=== PATIENT | female | born 1970 | race Hispanic/Latino ===

== ENCOUNTER 2017-02-14 18:09 | Emergency (ER) | payer OTHER ==
[~2017-02-14] VITALS: Ht 172.7 cm; Wt 99.8 kg
[~2017-02-14 18:09] MED LIST: ALPR1TAB6 PO; AMLO5TAB2 PO; CITA40TA5 PO; ESTR2TAB PO; LOSA1TAB19 PO; PANT40TA5 PO; POTA10TA31 PO; PROP20TA PO; RIZA10TA PO; TRAZ100T15 PO
[2017-02-14] MEDS ORDERED: DILAUDID IM STA (18:35)
[2017-02-14] MEDS ORDERED: ZOFRAN ODT SL STA (18:35)
--- NOTE | 2017-02-14 18:39 | ER.PDOC ---
General Chief Complaint: Female Urogenital Problems Stated Complaint: FEMALE Time seen by MD: 18:33 Source: patient History of Present Illness Timing/Duration: week Severity/Quality: moderate Radiation: buttocks, upper legs Method of Injury: unknown Modifying Factors: improves with immobilization, improves with movement Associated Symptoms: denies symptoms, muscle spasms, lower back pain, other ( DYS) Prior symptoms/Treatment: Similar symptoms previous Allergies: Coded Allergies: adhesive (Verified Allergy, Mild, 03/30/14) promethazine (Verified Allergy, Mild, 03/30/14) Home Meds Reported Medications Estradiol (ESTRADIOL) 2 Mg Tablet, 1 TAB PO DAILY, #90 TAB 1 Refill 05/22/15 Trazodone Hcl (TRAZODONE HCL) 100 Mg Tablet, 100 MG PO HS, TABLET 03/05/14 Propranolol Hcl (PROPRANOLOL HCL) 20 Mg Tablet, 20 MG PO BID, TABLET 03/05/14 Pantoprazole Sodium (PANTOPRAZOLE SODIUM) 40 Mg Tablet.dr, 40 MG PO DAILY 03/05/14 Potassium Chloride (POTASSIUM CHLORIDE) 10 Meq Tab.er.prt, 10 MEQ PO DAILY 03/05/14 Losartan/Hydrochlorothiazide (LOSARTAN-HCTZ 50-12.5 MG TAB) 1 Each Tablet, 1 EACH PO DAILY, TABLET 03/05/14 Alprazolam (ALPRAZOLAM) 1 Mg Tablet, 1 MG PO QID, TABLET 03/05/14 Past Medical History Medical History: hypertension Surgical History: cardiac cath, back, hysterectomy, neck LMP (females 10-50): hysterectomy Social History Alcohol Use: none Drug Use: none Review of Systems Genitourinary: dysuria, hematuria All Other Systems: Reviewed and Negative Physical Exam General Appearance: No Apparent Distress, WD/WN HEENT: PERRL/EOMI, Normal ENT Inspection, TMs Normal, Pharynx Normal Neck: Non-Tender, Normal Alignment Cardiovascular/Respiratory: Regular Rate, Rhythm, No M/R/G, Normal Peripheral Pulses, No JVD, Normal Breath Sounds, No Respiratory Distress Gastrointestinal: Normal Bowel Sounds, No Organomegaly, No Pulsatile Mass, Non Tender, Soft Back: Decreased Range Of Motion, Muscle Spasm Extremities: No Evidence of Injury, Normal Range of Motion, Non-Tender, No Pedal Edema, Pelvis Stable 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, 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, mood/effect nml, No Motor/Sensory Deficits, Relexes nml Skin: Normal Color, Warm/Dry Results/Orders Results/Orders Laboratory Tests Test 02/14/17 18:39 Urine Collection Type VOID Urine Color YELLOW (YELLOW) Urine Appearance CLOUDY (CLEAR) Urine Bilirubin NEGATIVE MG/DL (NEGATIVE) Urine Ketones NEGATIVE (NEGATIVE) Urine Specific [place] 1.015 (1.005-1.035) Urine pH 6 (5.0-6.0) Urine Protein 30 mg/dL (NEGATIVE) Urine Urobilinogen NORMAL (NEGATIVE) Urine Nitrate NEGATIVE (NEGATIVE) Urine Leukocyte Esterase 500/uL 2+ (NEGATIVE) Urine Blood 250 4+ (NEGATIVE) Urine RBC 2-5 RBC/HPF (NONE SEEN) Urine WBC TNTC WBC/HPF (0-2) Urine Squamous Epithelial Cells FEW #/HPF (FEW) Urine Bacteria MODERATE (NONE SEEN) Urine Glucose NORMAL (NEGATIVE) Departure Time of Disposition: 19:33 Disposition: 01 HOME, SELF-CARE Impression: Primary Impression: Low back pain Additional Impression: Cystitis Referrals: Sharif NEWMAN (PCP) PRIMARY CARE PROVIDER Problem Qualifiers CY CHAPA MD Feb 14, 2017 18:39
[2017-02-14 18:47] LABS: BILIRUBIN,URINE NEGATIVE (NEGATIVE); UROBILINOGEN,URINE NORMAL (NEGATIVE)
[2017-02-14 18:48] LABS: APPEARANCE,URINE CLOUDY (CLEAR); UA COLOR YELLOW (YELLOW)
[2017-02-14] MEDS ORDERED: ZOFRAN ODT ONE (18:48)
[2017-02-14] MEDS ORDERED: DILAUDID ONE (18:49)
[2017-02-14] MEDS ORDERED: TORADOL ONE (18:49)
[2017-02-14 18:50] LABS: WBC,URINE TNTC WBC/HPF (0-2)
[2017-02-14] MEDS ORDERED: TORADOL IM ONE (19:00)
--- NOTE | 2017-02-14 19:15 | NUR ---
DISCHARGE DISCHARGE INSTRUCTIONS AND PRESCRIPTION MEDICATION DISCUSSED. PT AND FAMILY MEMBER VERBALIZED UNDERSTANDING. ENCOURAGED TO RETURN FOR ANY CONCERNS.
--- NOTE | 2017-02-14 19:50 | NUR ---
UPDATE RT CALLED FOR REPEAT EKG
[2017-02-14 20:36] VITALS: BP 131/103
== END 2017-02-14 19:15 | disposition home or self-care (01) ==
LOC: ER 18:09
DX: N30.90 Cystitis, unspecified without hematuria (principal); I10 Essential (primary) hypertension; Z90.710 Acquired absence of both cervix and uterus; Z79.899 Other long term (current) drug therapy
CPT/HCPCS: 81000; 87077; 87086; 87186; 96372 ×2; 99284; J1170; J1885; Q0162

== ENCOUNTER → 2017-02-25 | Outpatient (CLI) | payer BC, OTHER ==
--- NOTE | 2017-02-26 | DIREP ---
PROCEDURE:CT ANGIOGRAPHY HEAD COMPARISON:None. INDICATIONS:HEADACHE TECHNIQUE:After obtaining the patient's consent, CT images of the head were obtained with non-ionic contrast, and with multi-planar/3-D imaging to optimize visualization of vascular anatomy. FINDINGS: VASCULATURE:Venous mixing moderately limits arterial detail. No rate limiting aneurysm, vessel occlusion or stenosis seen within limitations of technique. Dural venous sinuses are opacified without thrombus visualized. VENTRICLES:Normal. CEREBRUM:No hemorrhage, mass lesion or infarction. CEREBELLUM:No hemorrhage, mass lesion or infarction. BRAINSTEM:Normal. BASAL CISTERNS:Normal. SKULL:Normal. OTHER:Negative. CONCLUSION: 1. Limited CT angiogram. No rate limiting stenosis, vessel occlusion or aneurysm. 2. No acute intracranial abnormality demonstrated. Dictated by: Saw Alamo M.D. on 02/25/2017 at 11:53 PM
== END | disposition home or self-care (01) ==
LOC: CT 14:01 → EEVIPCON 14:30
PROVIDERS: ATTEND Specialist
DX: R51 Headache (principal)
CPT/HCPCS: 70496; Q9967

== ENCOUNTER 2017-10-16 16:25 | Emergency (ER) | payer OTHER ==
[~2017-10-16] VITALS: Ht 170.2 cm; Wt 86.2 kg
[2017-10-16 16:30] VITALS: BP 158/101
[2017-10-16] MEDS ORDERED: ASPIRIN ONE (16:33)
[2017-10-16] MEDS ORDERED: ASPIRIN PO STA (16:34)
--- NOTE | 2017-10-16 16:34 | PCM.EKG ---
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
[2017-10-16] MEDS: NITROSTAT SL PRN (16:41)
[2017-10-16 16:54] LABS: BASOPHIL # 0.1 10^3/uL (0.0-0.1); BASOPHIL % 0.8 % (0.0-0.2); EOSINOPHIL # 0.3 10^3/uL (0.0-0.2); EOSINOPHIL % 4.9 % (0.0-5.0); HEMOGLOBIN 13.6 g/dL (12.0-15.0); LYMPHOCYTES # 2.6 10^3/uL (1.0-4.8); LYMPHOCYTES % 40.4 % (24.0-44.0); MEAN CELL HGB 28.3 pg (26-34); MEAN CELL HGB CONCENTRATION 34.4 g/dL (33-37); MEAN CORP VOLUME 82.1 fL (78-100); MEAN PLATELET VOLUME 9.4 fL (7.8-11.0); MONOCYTES # 0.9 10^3/uL (0.3-0.8); MONOCYTES % 13.3 % (5.0-12.0); NEUTROPHIL # 2.6 10^3/uL (1.8-7.7); NEUTROPHILS % 40.4 % (41.0-85.0); RED CELL DISTRIBUTION WIDTH 12.8 % (11.5-14.5); WHITE BLOOD CELL 6.5 10^3/uL (4.5-11.0)
[2017-10-16] MEDS ORDERED: ZOFRAN ONE (16:55)
[2017-10-16] MEDS ORDERED: MORPHINE SULFATE ONE (16:56)
[2017-10-16] MEDS ORDERED: ZOFRAN IV STA (16:57)
[2017-10-16] MEDS ORDERED: MORPHINE SULFATE IV STA (16:57)
--- NOTE | 2017-10-16 17:14 | ER.PDOC ---
General Chief Complaint: Chest Pain-Cardiac Nature Stated Complaint: CHESTPAIN Time seen by MD: 17:11 Source: patient Exam Limitations: no limitations History of Present Illness Initial Comments Mid chest pain Timing/Duration: 1-3 hours Severity/Quality: moderate Radiation: no radiation Activities at Onset: activity/exertion Prior CP/Workup: Cardiac Cath Nitro Today/Relief: 0.4 mg x 1, Mild Relief Aspirin Today: 325 mg x 1, Provided By ED Associated Symptoms: shortness of breath Prior symptoms/Treatment: Similar symptoms previous Allergies: Coded Allergies: adhesive (Verified Allergy, Mild, 03/30/14) promethazine (Verified Allergy, Mild, 03/30/14) Home Meds Reported Medications Estradiol (ESTRADIOL) 2 Mg Tablet, 1 TAB PO DAILY, #90 TAB 1 Refill 05/22/15 Trazodone Hcl (TRAZODONE HCL) 100 Mg Tablet, 100 MG PO HS, TABLET 03/05/14 Propranolol Hcl (PROPRANOLOL HCL) 20 Mg Tablet, 20 MG PO BID, TABLET 03/05/14 Pantoprazole Sodium (PANTOPRAZOLE SODIUM) 40 Mg Tablet.dr, 40 MG PO DAILY 03/05/14 Potassium Chloride (POTASSIUM CHLORIDE) 10 Meq Tab.er.prt, 10 MEQ PO DAILY 03/05/14 Losartan/Hydrochlorothiazide (LOSARTAN-HCTZ 50-12.5 MG TAB) 1 Each Tablet, 1 EACH PO DAILY, TABLET 03/05/14 Alprazolam (ALPRAZOLAM) 1 Mg Tablet, 1 MG PO QID, TABLET 03/05/14 Past Medical History Medical History: cardiac problems Surgical History: neck LMP (females 10-50): hysterectomy Social History Smoking: non-smoker Alcohol Use: none Drug Use: none Constitutional: no symptoms reported EENTM: no symptoms reported Respiratory: no symptoms reported Cardiovascular: see HPI Gastrointestinal: no symptoms reported Genitourinary: no symptoms reported All Other Systems: Reviewed and Negative Physical Exam General Appearance: No Apparent Distress, WD/WN HEENT: PERRL/EOMI Neck: Non-Tender, Full Range of Motion, Supple, Normal Inspection Respiratory: chest non-tender, lungs clear, normal breath sounds, no respiratory distress, no accessory muscle use Cardiovascular: Normal Peripheral Pulses, Regular Rate, Rhythm, No Edema, No Gallop, No JVD, No Murmur Gastrointestinal: Normal Bowel Sounds, No Organomegaly, No Pulsatile Mass, Non Tender, Soft Extremities: Normal Range of Motion, Non-Tender, Normal Inspection, No Pedal Edema, No Calf Tenderness, Normal Capillary Refill 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, No Motor/Sensory Deficits, Alert, Normal Mood/Affect, Oriented x 3 Skin: Normal Color, Warm/Dry Lymphatic: No Adenopathy Results/Orders Results/Orders Laboratory Tests Test 10/16/17 16:40 White Blood Count 6.5 10^3/uL (4.5-11.0) Red Blood Count 4.81 10^6/uL (4.00-5.20) Hemoglobin 13.6 g/dL (12.0-15.0) Hematocrit 39.5 % (36.0-46.0) Mean Corpuscular Volume 82.1 fL (78-100) Mean Corpuscular Hemoglobin 28.3 pg (26-34) Mean Corpuscular Hemoglobin Concent 34.4 g/dL (33-37) Red Cell Distribution Width 12.8 % (11.5-14.5) Platelet Count 282 10^3/uL (150-400) Mean Platelet Volume 9.4 fL (7.8-11.0) Neutrophils (%) (Auto) 40.4 % (41.0-85.0) Lymphocytes (%) (Auto) 40.4 % (24.0-44.0) Monocytes (%) (Auto) 13.3 % (5.0-12.0) Neutrophils # (Auto) 2.6 10^3/uL (1.8-7.7) Lymphocytes # (Auto) 2.6 10^3/uL (1.0-4.8) Monocytes # (Auto) 0.9 10^3/uL (0.3-0.8) Absolute Immature Granulocyte (auto 0.01 10^3 u/L (0-2) Eosinophils % 4.9 % (0.0-5.0) Basophils % 0.8 % (0.0-0.2) Basophils # 0.1 10^3/uL (0.0-0.1) Eosinophil Count 0.3 10^3/uL (0.0-0.2) Percent Immature Gran (Cell Imm) 0.20 % (0.00-0.50) Administered Medications Medications (Trade) Dose Ordered Sig/Xavier Route PRN Reason Start Time Stop Time Status Last Admin Dose Admin Aspirin (Aspirin) 325 mg STAT STAT PO 10/16/17 16:34 10/16/17 16:35 DC 10/16/17 16:40 Nitroglycerin (Nitrostat) 0.4 mg PRN PRN SL CHEST PAIN 10/16/17 17:00 11/15/17 16:59 10/16/17 16:41 Morphine Sulfate (Morphine Sulfate) 4 mg STAT STAT IV 10/16/17 16:57 10/16/17 16:58 DC 10/16/17 17:01 Ondansetron HCl (Zofran) 4 mg STAT STAT IV 10/16/17 16:57 10/16/17 16:58 DC 10/16/17 17:00 Progress Progress Pain resolved with Morphine. Spoke to Dr. Kearns and patient to follow up with him tomorrow at 2pm. Patient told me she already had this appointment scheduled with him. Patient had a normal heart cath in 2015. EKG/XRAY/CT/US XRAY: chest (No active disease) Course Sepsis Screening Results: Posi: POSITIVE SEPSIS RISK Vitals & review Data Vital Sign - Last 24 Hours 10/16/17 10/16/17 10/16/17 16:26 16:26 16:30 Temp 98.1 98.3 98.3 98.1 98.3 98.3 Pulse 84 91 91 Resp 18 18 18 B/P (MAP) 158/101 (120) Pulse Ox 97 97 O2 Delivery Room Air Room Air Laboratory Tests Test 10/16/17 16:40 White Blood Count 6.5 10^3/uL Red Blood Count 4.81 10^6/uL Hemoglobin 13.6 g/dL Hematocrit 39.5 % Mean Corpuscular Volume 82.1 fL Mean Corpuscular Hemoglobin 28.3 pg Mean Corpuscular Hemoglobin Concent 34.4 g/dL Red Cell Distribution Width 12.8 % Platelet Count 282 10^3/uL Mean Platelet Volume 9.4 fL Neutrophils (%) (Auto) 40.4 % Lymphocytes (%) (Auto) 40.4 % Monocytes (%) (Auto) 13.3 % Neutrophils # (Auto) 2.6 10^3/uL Lymphocytes # (Auto) 2.6 10^3/uL Monocytes # (Auto) 0.9 10^3/uL Absolute Immature Granulocyte (auto 0.01 10^3 u/L Eosinophils % 4.9 % Basophils % 0.8 % Basophils # 0.1 10^3/uL Eosinophil Count 0.3 10^3/uL Percent Immature Gran (Cell Imm) 0.20 % Current Medications Medications (Trade) Dose Ordered Sig/Xavier PRN Reason Start Time Stop Time Status Last Admin Nitroglycerin (Nitrostat) 0.4 mg PRN PRN CHEST PAIN 10/16/17 17:00 11/15/17 16:59 10/16/17 16:41 Departure Time of Disposition: 17:43 Disposition: 01 HOME, SELF-CARE Impression: Primary Impression: Nonspecific chest pain Condition: Stable Referrals: Sharif NEWMAN (PCP) PRIMARY CARE PROVIDER Additional Instructions: F/U with Dr. Kearns tomorrow at 2pm Duration or Time Spent with Pa: 60 mins TOY PARSONS MD Oct 16, 2017 17:14
[2017-10-16 17:19] LABS: ALANINE AMINOTRANSFERASE(ML) 15 U/L (12-78); ALKALINE PHOSPHATASE 63 U/L (50-136); ASPARTATE AMINO TRANSFERASE 20 U/L (0-35); CALCIUM 9.3 mg/dL (8.4-10.5); CARBON DIOXIDE 22.9 mmol/L (20.0-32); GLUCOSE 96 mg/dL (70-110)
--- NOTE | 2017-10-16 17:34 | DIREP ---
PROCEDURE:CHEST 1 VIEW COMPARISON:None. INDICATIONS:Chest pain FINDINGS: LUNGS/PLEURA:No significant pulmonary parenchymal abnormalities. No effusions. VASCULATURE:Normal. Unremarkable pulmonary vasculature. CARDIAC:Normal. No cardiac silhouette abnormality or cardiomegaly. MEDIASTINUM:Normal. No visible mass or adenopathy. BONES:Normal. No fracture or visible bony lesion. OTHER:Dorsal column stimulator with leads adjacent to T7 through T10 vertebra. CONCLUSION: 1. Dorsal column stimulator; otherwise normal chest. Dictated by: Andrei Rangel M.D. on 10/16/2017 at 05:32 PM
[2017-10-16 18:17] VITALS: BP 158/101
== END 2017-10-16 18:05 | disposition home or self-care (01) ==
LOC: ER 16:25
DX: R07.9 Chest pain, unspecified (principal); R06.02 Shortness of breath; Z88.8 Allergy status to other drugs, medicaments and biological substances; Z79.899 Other long term (current) drug therapy; Z90.710 Acquired absence of both cervix and uterus
CPT/HCPCS: 36415; 71045; 80053; 82550; 82553; 83880; 84484; 85025; 85379; 85610; 85730; 93005; 96374; 96375; 99285; J2270; J2405

== ENCOUNTER 2018-05-30 16:16 | Emergency (ER) | payer OTHER ==
[~2018-05-30] VITALS: Ht 170.2 cm; Wt 102.1 kg
[~2018-05-30 16:16] MED LIST changes: +AMLO5TAB10 PO; -AMLO5TAB2 PO; +TRAZ-131 PO; -TRAZ100T15 PO
--- NOTE | 2018-05-30 16:35 | NUR ---
ARRIVAL PT ARRIVED TO ER 7 AMBULATORY ACCOMPANIED BY FAMILY MEMBER. BEDSIDE MONITORS APPLIED. VITAL SIGNS TABLE WITH ELEVATED BP. BED IN LOW LOCKED POSITION WITH SIDE RAILS X2. CALL LIGHT WITHIN REACH.
[2018-05-30 16:45] VITALS: BP 171/106
[2018-05-30] MEDS ORDERED: DILAUDID IM STA (17:22)
[2018-05-30] MEDS ORDERED: PREDNISONE PO STA (17:22)
[2018-05-30] MEDS ORDERED: PREDNISONE ONE (17:26)
[2018-05-30] MEDS ORDERED: DILAUDID ONE (17:27)
--- NOTE | 2018-05-30 17:27 | ER.PDOC ---
General Chief Complaint: Neck/Upper back Pain Stated Complaint: NECK AND BACK PAIN TRAVEL OUT OF US: No Time seen by MD: 17:33 Source: patient Exam Limitations: no limitations History of Present Illness Timing/Duration: 1 week Severity: moderate Modifying Factors: improves with immobilization, improves with medication, improves with movement, improves with rest Associated Symptoms: malaise Allergies: Coded Allergies: adhesive (Verified Allergy, Mild, 03/30/14) promethazine (Verified Allergy, Mild, 03/30/14) Home Meds Reported Medications Estradiol (ESTRADIOL) 2 Mg Tablet, 1 TAB PO DAILY, #90 TAB 1 Refill 05/22/15 Trazodone Hcl (TRAZODONE HCL) 100 Mg Tablet, 100 MG PO HS, TABLET 03/05/14 Propranolol Hcl (PROPRANOLOL HCL) 20 Mg Tablet, 20 MG PO BID, TABLET 03/05/14 Pantoprazole Sodium (PANTOPRAZOLE SODIUM) 40 Mg Tablet.dr, 40 MG PO DAILY 03/05/14 Potassium Chloride (POTASSIUM CHLORIDE) 10 Meq Tab.er.prt, 10 MEQ PO DAILY 03/05/14 Losartan/Hydrochlorothiazide (LOSARTAN-HCTZ 50-12.5 MG TAB) 1 Each Tablet, 1 EACH PO DAILY, TABLET 03/05/14 Alprazolam (ALPRAZOLAM) 1 Mg Tablet, 1 MG PO QID, TABLET 03/05/14 Past Medical History Medical History: no pertinent history Surgical History: hysterectomy, neck, other LMP (females 10-50): hysterectomy Social History Smoking: less than 1 pack/day Alcohol Use: rarely Drug Use: none Reviewed Nursing Reviewed: Vital Signs, Abn. 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 Skin: Normal Color Lymphatic: No Adenopathy Results/Orders Results/Orders Orders - CY CHAPA MD Prednisone (Prednisone) (05/30/18 17:22) Ketorolac Tromethamine (Toradol) (05/30/18 17:30) Hydromorphone Inj (Dilaudid) (05/30/18 17:22) Vital Signs Date Time Temp Pulse Resp B/P (MAP) Pulse Ox O2 Delivery O2 Flow Rate FiO2 05/30/18 16:45 98.0 83 16 171/106 (127) 97 Room Air 98.0 05/30/18 16:38 98.0 83 16 98.0 05/30/18 16:38 98.0 83 16 97 Room Air 98.0 Course Sepsis Screening Results: Posi: POSITIVE SEPSIS RISK Duration or Total Time Spent w: 60 mins Vitals & review Data Vital Sign - Last 24 Hours 05/30/18 05/30/18 05/30/18 16:38 16:38 16:45 Temp 98.0 98.0 98.0 98.0 98.0 98.0 Pulse 83 83 83 Resp 16 16 16 B/P (MAP) 171/106 (127) Pulse Ox 97 97 O2 Delivery Room Air Room Air Sepsis Infection Criteria Pres: None O2 Sat by Pulse Oximetry: 97 Departure Time of Disposition: 17:33 Disposition: 01 HOME, SELF-CARE Impression: Primary Impression: Back pain Additional Impression: Neck pain Condition: Improved Referrals: JONATHAN CROUCH NP (PCP) PRIMARY CARE PROVIDER Duration or Time Spent with Pa: 1 HR Problem Qualifiers CY CHAPA MD May 30, 2018 17:27
[2018-05-30] MEDS ORDERED: TORADOL IM ONE (17:30)
[2018-05-30] MEDS ORDERED: TORADOL ONE (17:33)
[2018-05-30] MEDS ORDERED: PRED50TA PO (17:47)
[2018-05-30] MEDS ORDERED: CYCL10TA2 PO (17:47)
[2018-05-30 17:56] VITALS: BP 171/106
== END 2018-05-30 17:50 | disposition home or self-care (01) ==
LOC: ER 16:16
DX: M54.2 Cervicalgia (principal); M54.9 Dorsalgia, unspecified; R53.83 Other fatigue; F17.210 Nicotine dependence, cigarettes, uncomplicated; Z79.899 Other long term (current) drug therapy; Z90.710 Acquired absence of both cervix and uterus; Z88.8 Allergy status to other drugs, medicaments and biological substances
CPT/HCPCS: 96372; 99283; J1170; J1885; J7512